=== PATIENT | male | born 1940 | race Caucasian/White ===

== ENCOUNTER 2019-01-13 19:44 | Inpatient (IN) | payer MEDICARE, BC ==
[~2019-01-13] VITALS: Ht 180.3 cm; Wt 75.8 kg
[2019-01-13 20:30] LABS: BASOPHILS % (AUTO) 0.5 % (0-1); EOSINOPHILS # (AUTO) 0.1 X10'3 (0-0.9); EOSINOPHILS % (AUTO) 0.6 % (0-6); HEMATOCRIT 48.9 % (42.0-52.0); HEMOGLOBIN 16.4 g/dl (14.0-17.9); LYMPHOCYTES # (AUTO) 0.9 X10'3 (1.1-4.8); LYMPHOCYTES % (AUTO) 9.7 % (21-51); MEAN CORPUSCULAR HEMOGLOBIN 30.9 PG (27.0-31.0); MEAN CORPUSCULAR HGB CONC 33.5 g/dL (33.0-36.5); MEAN CORPUSCULAR VOLUME 92.3 FL (78-98); MEAN PLATELET VOLUME 8.1 FL (7.4-10.4); MONOCYTES # (AUTO) 0.5 X10'3 (0-0.9); MONOCYTES % (AUTO) 5.5 % (2-12); NEUTROPHILS # (AUTO) 7.8 X10'3 (1.8-7.7); NEUTROPHILS % (AUTO) 83.7 % (42-75); PLATELET COUNT 289 X10'3 (140-440); RED CELL DISTRIBUTION WIDTH 14.4 % (11.5-14.5); WHITE BLOOD COUNT 9.3 X10'3 (4.5-11.0)
[2019-01-13 20:42] LABS: PARTIAL THROMBOPLASTIN TIME 26 SECONDS (22-32)
[2019-01-13 21:03] LABS: ALBUMIN 4.1 G/DL (3.4-5.0); ALBUMIN/GLOBULIN RATIO 1.1 (1.1-1.5); ANION GAP 10 (8-16); BILIRUBIN,TOTAL 0.6 MG/DL (0.1-1.0); BLOOD UREA NITROGEN 29 MG/DL (7-18); BUN/CREATININE RATIO 16.7 (5.4-32.0); CALCIUM 9.6 MG/DL (8.5-10.1); CHLORIDE 98 MMOL/L (99-107); CREATININE 1.74 MG/DL (0.60-1.10); GLUCOSE 261 MG/DL (70-104); POTASSIUM 4.5 MMOL/L (3.5-5.1); SODIUM 136 MMOL/L (135-145); TOTAL CARBON DIOXIDE 28.5 MMOL/L (24-32); eGFR 38 ML/MIN
[2019-01-13 21:04] LABS: ALANINE AMINOTRANSFERASE 24 U/L (12-78); ALKALINE PHOSPHATASE 74 IU/L (46-116); ASPARTATE AMINO TRANSFERASE 16 U/L (10-37)
[2019-01-13] MEDS ORDERED: GLIP5TAB13 PO (22:00)
[2019-01-13] MEDS ORDERED: METF500T PO (22:00)
[2019-01-13] MEDS ORDERED: CHOL10002 PO (22:00)
[2019-01-13] MEDS ORDERED: METO-395 PO (22:00)
[2019-01-13] MEDS ORDERED: FLUT16SP2 BOTHNARES (22:00)
[2019-01-13] MEDS ORDERED: ondansetron/PF 4mg/2ml inj IV PRN (23:50)
[2019-01-13] MEDS ORDERED: mag hydrox/Alum hydrox/simeth 30ml oral suspension PO PRN (23:50)
[2019-01-13] MEDS ORDERED: magnesium hydroxide 30ml (MOM) UD suspension PO PRN (23:50)
[2019-01-13] MEDS ORDERED: acetaminophen 325mg tablet PO PRN ×2 (23:50)
[2019-01-13] MEDS ORDERED: HYDROcodone/acetaminophen 5mg/325mg tablet PO PRN (23:50)
[2019-01-13] MEDS ORDERED: morphine 2 MG/ML inj. syringe IV PRN ×2 (23:50)
--- NOTE | 2019-01-14 00:53 | NUR ---
Patient in room . I have received report from [facility] and had the opportunity to ask questions and assume patient care.
--- NOTE | 2019-01-14 01:11 | NUR ---
patient arrived from ER, no distress VS stable, denies chest pain, Dr. Green at bedside at this time.
[2019-01-14 01:13] VITALS: BP 124/81
--- NOTE | 2019-01-14 01:39 | NUR ---
PER DR. MERA: OK TO DRAW 1 MORE TROPONIN DRAW FOR PATIENT
[2019-01-14 02:30] LABS: BASOPHILS # (AUTO) 0.1 X10'3 (0-0.2); BASOPHILS % (AUTO) 0.8 % (0-1); EOSINOPHILS # (AUTO) 0.1 X10'3 (0-0.9); EOSINOPHILS % (AUTO) 1.2 % (0-6); HEMATOCRIT 47.8 % (42.0-52.0); HEMOGLOBIN 16.1 g/dl (14.0-17.9); LYMPHOCYTES # (AUTO) 1.3 X10'3 (1.1-4.8); LYMPHOCYTES % (AUTO) 17.4 % (21-51); MEAN CORPUSCULAR HEMOGLOBIN 31.2 PG (27.0-31.0); MEAN CORPUSCULAR HGB CONC 33.8 g/dL (33.0-36.5); MEAN CORPUSCULAR VOLUME 92.4 FL (78-98); MEAN PLATELET VOLUME 7.8 FL (7.4-10.4); MONOCYTES # (AUTO) 0.5 X10'3 (0-0.9); MONOCYTES % (AUTO) 7.3 % (2-12); NEUTROPHILS # (AUTO) 5.4 X10'3 (1.8-7.7); NEUTROPHILS % (AUTO) 73.3 % (42-75); PLATELET COUNT 294 X10'3 (140-440); RED BLOOD COUNT 5.17 X10'6 (4.70-6.10); RED CELL DISTRIBUTION WIDTH 14.7 % (11.5-14.5); WHITE BLOOD COUNT 7.4 X10'3 (4.5-11.0)
[2019-01-14 02:47] LABS: HEMOGLOBIN A1C 7.6 % (4.5-6.2)
[2019-01-14 02:48] LABS: ANION GAP 5 (8-16); BLOOD UREA NITROGEN 29 MG/DL (7-18); BUN/CREATININE RATIO 20.6 (5.4-32.0); CALCIUM 9.7 MG/DL (8.5-10.1); CHLORIDE 102 MMOL/L (99-107); CREATININE 1.41 MG/DL (0.60-1.10); GLUCOSE 121 MG/DL (70-104); POTASSIUM 4.2 MMOL/L (3.5-5.1); SODIUM 140 MMOL/L (135-145); TOTAL CARBON DIOXIDE 32.6 MMOL/L (24-32); eGFR 49 ML/MIN
--- NOTE | 2019-01-14 06:12 | NUR ---
Problems reprioritized. Patient report given, questions answered & plan of care reviewed with KEVIN Worthington. Addendum: 01/14/19 at 0613 by Liset Adkins RN Amended: Links added.
[2019-01-14 07:22] VITALS: BP 102/55
[2019-01-14 07:23] VITALS: BP 99/61
[2019-01-14] MEDS ORDERED: glipizide 5mg tablet PO SCH (08:00)
[2019-01-14] MEDS ORDERED: metFORMIN 500mg tablet PO SCH (08:00)
[2019-01-14] MEDS: metoprolol succinate 25mg (24-HOUR) SR. Tablet PO SCH ×2 (08:00→19:52)
[2019-01-14] MEDS: furosemide 20 MG/2 ML vial IV SCH ×2 (08:00→19:48)
[2019-01-14] MEDS: vitamin D (cholecalciferol) 1,000 unit tablet PO SCH (08:24)
[2019-01-14] MEDS: fluticasone nasal spray 16GM bottle NS SCH (08:26)
[2019-01-14] MEDS ORDERED: OFLO5DRO3 LEFTEYE (09:36)
[2019-01-14] MEDS ORDERED: PRED15SO23 LEFTEYE (09:36)
[2019-01-14] MEDS ORDERED: PRED15SO6 LEFTEYE (09:45)
[2019-01-14] MEDS: PREDNISOLONE SODIUM PHOSPHATE 1% LEFTEYE SCH ×7 (10:55→23:00)
[2019-01-14] MEDS: OFLOXACIN LEFTEYE SCH ×7 (10:55→23:00)
[2019-01-14 11:33] VITALS: BP 113/63
--- NOTE | 2019-01-14 14:42 | NUR ---
DM consult, A1c 7.6, patient given written DM education handout with verbal review and referral to outpatient wednesday DM class. Addendum: 01/14/19 at [address] Amended: Links added.
[2019-01-14] MEDS: metFORMIN 500mg tablet PO SCH (15:51)
[2019-01-14] MEDS: glipizide 5mg tablet PO SCH (15:51)
--- NOTE | 2019-01-14 16:35 | NUR ---
Paged about possible stress test. No answer.
--- NOTE | 2019-01-14 18:20 | NUR ---
Problems reprioritized. Patient report given, questions answered & plan of care reviewed with KEVIN Warren.
--- NOTE | 2019-01-14 18:30 | NUR ---
Patient in room [facility]. I have received report from TRISH BROWN and had the opportunity to ask questions and assume patient care.
[2019-01-14 20:00] VITALS: BP 128/71
--- NOTE | 2019-01-14 22:00 | NUR ---
PATIENT CLAIMED THAT HIS EYE DROPS THAT IS TO BE TAKEN Q2H IS ONLY WHEN HE IS AWAKE, AND HE USUALLY TAKES IT STARTING 0600 UP TO 2200.
[2019-01-15] VITALS (7 sets, daily range): BP systolic 103–144; BP diastolic 54–80
[2019-01-15] MEDS: OFLOXACIN LEFTEYE SCH ×12 (01:00→23:00)
[2019-01-15] MEDS: PREDNISOLONE SODIUM PHOSPHATE 1% LEFTEYE SCH ×12 (01:00→23:00)
[2019-01-15 05:58] LABS: BASOPHILS % (AUTO) 0.6 % (0-1); EOSINOPHILS # (AUTO) 0.2 X10'3 (0-0.9); EOSINOPHILS % (AUTO) 2.5 % (0-6); HEMATOCRIT 45.6 % (42.0-52.0); HEMOGLOBIN 15.3 g/dl (14.0-17.9); LYMPHOCYTES # (AUTO) 1.6 X10'3 (1.1-4.8); LYMPHOCYTES % (AUTO) 22.1 % (21-51); MEAN CORPUSCULAR HEMOGLOBIN 30.9 PG (27.0-31.0); MEAN CORPUSCULAR HGB CONC 33.5 g/dL (33.0-36.5); MEAN CORPUSCULAR VOLUME 92.3 FL (78-98); MEAN PLATELET VOLUME 7.9 FL (7.4-10.4); MONOCYTES # (AUTO) 0.7 X10'3 (0-0.9); MONOCYTES % (AUTO) 9.6 % (2-12); NEUTROPHILS # (AUTO) 4.9 X10'3 (1.8-7.7); NEUTROPHILS % (AUTO) 65.2 % (42-75); PLATELET COUNT 278 X10'3 (140-440); RED BLOOD COUNT 4.94 X10'6 (4.70-6.10); RED CELL DISTRIBUTION WIDTH 14.3 % (11.5-14.5); WHITE BLOOD COUNT 7.4 X10'3 (4.5-11.0)
--- NOTE | 2019-01-15 06:13 | NUR ---
Problems reprioritized. Patient report given, questions answered & plan of care reviewed with TRISH BROWN.
[2019-01-15 06:21] LABS: ALBUMIN 3.4 G/DL (3.4-5.0); ANION GAP 9 (8-16); BLOOD UREA NITROGEN 28 MG/DL (7-18); BUN/CREATININE RATIO 20.1 (5.4-32.0); CALCIUM 9.2 MG/DL (8.5-10.1); CHLORIDE 103 MMOL/L (99-107); CREATININE 1.39 MG/DL (0.60-1.10); GLUCOSE 73 MG/DL (70-104); POTASSIUM 4.4 MMOL/L (3.5-5.1); SODIUM 144 MMOL/L (135-145); TOTAL CARBON DIOXIDE 32.2 MMOL/L (24-32); eGFR 50 ML/MIN
[2019-01-15] MEDS: glipizide 5mg tablet PO SCH ×2 (07:23→15:23)
[2019-01-15] MEDS: vitamin D (cholecalciferol) 1,000 unit tablet PO SCH (07:23)
[2019-01-15] MEDS: metFORMIN 500mg tablet PO SCH ×2 (07:23→15:23)
[2019-01-15] MEDS: metoprolol succinate 25mg (24-HOUR) SR. Tablet PO SCH ×2 (07:23→19:37)
[2019-01-15] MEDS: furosemide 20 MG/2 ML vial IV SCH ×2 (07:24→19:37)
[2019-01-15] MEDS: fluticasone nasal spray 16GM bottle NS SCH (07:24)
--- NOTE | 2019-01-15 11:21 | NUR ---
pt c/o intermittent SOB. cora ROBLEDO. Vitals stable. Awaiting response/ new orders.
--- NOTE | 2019-01-15 12:38 | NUR ---
MD ordered blood glucose assessments PRN change in mental status.
--- NOTE | 2019-01-15 18:02 | NUR ---
Patient in room [facility]. I have received report from Mari BROWN and had the opportunity to ask questions and assume patient care.
--- NOTE | 2019-01-15 18:22 | NUR ---
Problems reprioritized. Patient report given, questions answered & plan of care reviewed with KEVIN Navarro.
[2019-01-15] MEDS: lisinopril 2.5mg tablet PO SCH (23:25)
[2019-01-16] MEDS: OFLOXACIN LEFTEYE SCH ×12 (01:00→23:00)
[2019-01-16] MEDS: PREDNISOLONE SODIUM PHOSPHATE 1% LEFTEYE SCH ×12 (01:00→23:00)
--- NOTE | 2019-01-16 01:26 | NUR ---
Zestril not given as pt.'s VS WNR and he did not want to be awoken if sleeping.
[2019-01-16 05:15] LABS: BASOPHILS # (AUTO) 0.1 X10'3 (0-0.2); BASOPHILS % (AUTO) 1.2 % (0-1); EOSINOPHILS # (AUTO) 0.2 X10'3 (0-0.9); EOSINOPHILS % (AUTO) 3.2 % (0-6); HEMATOCRIT 45.8 % (42.0-52.0); HEMOGLOBIN 15.1 g/dl (14.0-17.9); LYMPHOCYTES # (AUTO) 1.5 X10'3 (1.1-4.8); LYMPHOCYTES % (AUTO) 21.7 % (21-51); MEAN CORPUSCULAR HEMOGLOBIN 30.5 PG (27.0-31.0); MEAN CORPUSCULAR VOLUME 92.4 FL (78-98); MEAN PLATELET VOLUME 7.9 FL (7.4-10.4); MONOCYTES # (AUTO) 0.7 X10'3 (0-0.9); NEUTROPHILS # (AUTO) 4.5 X10'3 (1.8-7.7); NEUTROPHILS % (AUTO) 63.9 % (42-75); PLATELET COUNT 266 X10'3 (140-440); RED BLOOD COUNT 4.96 X10'6 (4.70-6.10); RED CELL DISTRIBUTION WIDTH 14.2 % (11.5-14.5)
[2019-01-16 05:25] LABS: ALBUMIN 3.4 G/DL (3.4-5.0); ANION GAP 8 (8-16); BLOOD UREA NITROGEN 29 MG/DL (7-18); CHLORIDE 102 MMOL/L (99-107); CREATININE 1.26 MG/DL (0.60-1.10); GLUCOSE 90 MG/DL (70-104); SODIUM 140 MMOL/L (135-145); TOTAL CARBON DIOXIDE 29.9 MMOL/L (24-32); eGFR 55 ML/MIN
--- NOTE | 2019-01-16 06:36 | NUR ---
Problems reprioritized. Patient report given, questions answered & plan of care reviewed with Mari BROWN.
[2019-01-16 07:10] VITALS: BP_SYST 112; BP_SYST 115; BP_SYST 119; BP_DIAS 75; BP_DIAS 78; BP_DIAS 93
[2019-01-16] MEDS: glipizide 5mg tablet PO SCH ×2 (07:39→14:30)
[2019-01-16] MEDS: vitamin D (cholecalciferol) 1,000 unit tablet PO SCH (07:39)
[2019-01-16] MEDS: metFORMIN 500mg tablet PO SCH ×2 (07:39→14:30)
[2019-01-16] MEDS: carvedilol 6.25mg tablet PO SCH ×2 (07:40→19:54)
[2019-01-16] MEDS: lisinopril 2.5mg tablet PO SCH (07:40)
[2019-01-16] MEDS: fluticasone nasal spray 16GM bottle NS SCH (07:40)
[2019-01-16] MEDS: furosemide 20 MG/2 ML vial IV SCH (07:44)
[2019-01-16 11:00] VITALS: BP 113/62
--- NOTE | 2019-01-16 18:28 | NUR ---
Problems reprioritized. Patient report given, questions answered & plan of care reviewed with NIKA Henning RN.
--- NOTE | 2019-01-16 18:36 | NUR ---
Patient in room [facility]. I have received report from KEVIN CHAMBERS and had the opportunity to ask questions and assume patient care. Addendum: 01/16/19 at 1836 by Liset Adkins RN Amended: Links added.
[2019-01-16] MEDS: furosemide 20MG tablet PO SCH (19:54)
[2019-01-16 20:00] VITALS: BP_SYST 100; BP_SYST 103; BP_SYST 107; BP_SYST 93; BP_DIAS 55; BP_DIAS 58; BP_DIAS 67
[2019-01-17] VITALS: BP 101/55
[2019-01-17] MEDS: OFLOXACIN LEFTEYE SCH ×7 (01:00→13:44)
[2019-01-17] MEDS: PREDNISOLONE SODIUM PHOSPHATE 1% LEFTEYE SCH ×7 (01:00→13:44)
[2019-01-17 04:51] LABS: MEAN CORPUSCULAR HEMOGLOBIN 30.8 PG (27.0-31.0); MEAN CORPUSCULAR VOLUME 91.7 FL (78-98); PLATELET COUNT 274 X10'3 (140-440); WHITE BLOOD COUNT 7.3 X10'3 (4.5-11.0)
[2019-01-17 04:54] LABS: BASOPHILS # (AUTO) 0.1 X10'3 (0-0.2); EOSINOPHILS # (AUTO) 0.3 X10'3 (0-0.9); EOSINOPHILS % (AUTO) 3.5 % (0-6); HEMATOCRIT 45.3 % (42.0-52.0); HEMOGLOBIN 15.2 g/dl (14.0-17.9); LYMPHOCYTES # (AUTO) 1.8 X10'3 (1.1-4.8); LYMPHOCYTES % (AUTO) 24.2 % (21-51); MEAN CORPUSCULAR HGB CONC 33.6 g/dL (33.0-36.5); MONOCYTES # (AUTO) 0.8 X10'3 (0-0.9); MONOCYTES % (AUTO) 10.8 % (2-12); NEUTROPHILS # (AUTO) 4.4 X10'3 (1.8-7.7); NEUTROPHILS % (AUTO) 60.5 % (42-75); RED BLOOD COUNT 4.94 X10'6 (4.70-6.10); RED CELL DISTRIBUTION WIDTH 14.5 % (11.5-14.5)
[2019-01-17 05:05] LABS: ALBUMIN 3.2 G/DL (3.4-5.0); ANION GAP 6 (8-16); BLOOD UREA NITROGEN 29 MG/DL (7-18); BUN/CREATININE RATIO 19.7 (5.4-32.0); CALCIUM 9.5 MG/DL (8.5-10.1); CHLORIDE 102 MMOL/L (99-107); CREATININE 1.47 MG/DL (0.60-1.10); GLUCOSE 79 MG/DL (70-104); POTASSIUM 4.1 MMOL/L (3.5-5.1); SODIUM 140 MMOL/L (135-145); TOTAL CARBON DIOXIDE 32.2 MMOL/L (24-32); eGFR 46 ML/MIN
--- NOTE | 2019-01-17 06:36 | NUR ---
Patient in room [facility]. I have received report from Radha Reeves RN and had the opportunity to ask questions and assume patient care.
--- NOTE | 2019-01-17 06:36 | NUR ---
Problems reprioritized. Patient report given, questions answered & plan of care reviewed with KEVIN Anderson. Addendum: 01/17/19 at 0636 by Liset Adkins RN Amended: Links added.
[2019-01-17 08:00] VITALS: BP_SYST 103; BP_SYST 126; BP_SYST 88; BP_SYST 94; BP_DIAS 48; BP_DIAS 61; BP_DIAS 62; BP_DIAS 71
[2019-01-17] MEDS: metFORMIN 500mg tablet PO SCH (08:19)
[2019-01-17] MEDS: lisinopril 2.5mg tablet PO SCH (08:19)
[2019-01-17] MEDS: glipizide 5mg tablet PO SCH (08:20)
[2019-01-17] MEDS: fluticasone nasal spray 16GM bottle NS SCH (08:20)
[2019-01-17] MEDS: furosemide 20MG tablet PO SCH (08:20)
[2019-01-17] MEDS: vitamin D (cholecalciferol) 1,000 unit tablet PO SCH (08:20)
[2019-01-17] MEDS: carvedilol 6.25mg tablet PO SCH (08:20)
[2019-01-17 12:00] VITALS: BP 103/48
[2019-01-17] MEDS ORDERED: LISI2.5T2 PO (12:14)
[2019-01-17] MEDS ORDERED: FURO20TA4 PO (12:14)
[2019-01-17] MEDS ORDERED: CARV6.253 PO (12:14)
== END 2019-01-17 14:00 | disposition home or self-care (01) | DRG 291 ==
LOC: ER 20:30 → SUR 3N 01-14 01:10
PROVIDERS: ADMIT Internal Medicine; ATTEND Family Medicine
DX: I13.0 Hypertensive heart and chronic kidney disease with heart failure and stage 1 through stage 4 chronic kidney disease, or unspecified chronic kidney disease (principal); N17.0 Acute kidney failure with tubular necrosis; I50.23 Acute on chronic systolic (congestive) heart failure; I20.8 Other forms of angina pectoris; N18.9 Chronic kidney disease, unspecified; E86.0 Dehydration; H54.8 Legal blindness, as defined in USA; E11.22 Type 2 diabetes mellitus with diabetic chronic kidney disease; R55 Syncope and collapse; I48.91 Unspecified atrial fibrillation; J44.9 Chronic obstructive pulmonary disease, unspecified; Z79.899 Other long term (current) drug therapy; Z90.2 Acquired absence of lung [part of]; Z79.84 Long term (current) use of oral hypoglycemic drugs; Z98.49 Cataract extraction status, unspecified eye
CPT/HCPCS: 36415; 71046; 80048; 80053; 82948; 83036; 83880; 84484; 85025; 85610; 85730; 87081; 93005; 93306; 93880; 99285; G0378; J1940

== ENCOUNTER 2019-04-01 13:43 | Emergency (ER) | payer MEDICARE, BC ==
[~2019-04-01] VITALS: Ht 180.3 cm; Wt 80.9 kg
[~2019-04-01 13:43] MED LIST: CARV6.253 PO; CHOL10002 PO; FLUT16SP2 BOTHNARES; FURO20TA4 PO; LISI2.5T2 PO; METF500T PO; OFLO5DRO3 LEFTEYE; PRED15SO6 LEFTEYE
[2019-04-01 13:54] VITALS: BP 114/66
--- NOTE | 2019-04-01 14:05 | NUR ---
ABOUT 6 WEEKS AGO PT GOT A LIFE VEST EXTERNAL DEFIBRILATOR. Apr SCHEDULED FOR A PERMANENT DEFIB WITH DR. SOLER.
[2019-04-01 14:39] LABS: BASOPHILS % (AUTO) 0.7 % (0-1); EOSINOPHILS # (AUTO) 0.2 X10'3 (0-0.9); EOSINOPHILS % (AUTO) 2.5 % (0-6); HEMATOCRIT 44.8 % (42.0-52.0); LYMPHOCYTES # (AUTO) 1.1 X10'3 (1.1-4.8); LYMPHOCYTES % (AUTO) 16.7 % (21-51); MEAN CORPUSCULAR HEMOGLOBIN 31.5 PG (27.0-31.0); MEAN CORPUSCULAR HGB CONC 33.5 g/dL (33.0-36.5); MEAN CORPUSCULAR VOLUME 94.1 FL (78-98); MEAN PLATELET VOLUME 7.2 FL (7.4-10.4); MONOCYTES # (AUTO) 0.6 X10'3 (0-0.9); MONOCYTES % (AUTO) 9.4 % (2-12); NEUTROPHILS # (AUTO) 4.8 X10'3 (1.8-7.7); NEUTROPHILS % (AUTO) 70.7 % (42-75); PLATELET COUNT 272 X10'3 (140-440); RED BLOOD COUNT 4.76 X10'6 (4.70-6.10); RED CELL DISTRIBUTION WIDTH 15.2 % (11.5-14.5); WHITE BLOOD COUNT 6.8 X10'3 (4.5-11.0)
[2019-04-01 14:46] LABS: PARTIAL THROMBOPLASTIN TIME 30 SECONDS (22-32)
[2019-04-01 14:49] LABS: ALBUMIN 3.4 G/DL (3.4-5.0); ALBUMIN/GLOBULIN RATIO 0.9 (1.1-1.5); ANION GAP 9 (8-16); ASPARTATE AMINO TRANSFERASE 11 U/L (10-37); BILIRUBIN,TOTAL 0.7 MG/DL (0.1-1.0); BLOOD UREA NITROGEN 14 MG/DL (7-18); BUN/CREATININE RATIO 10.9 (5.4-32.0); CHLORIDE 100 MMOL/L (99-107); CREATININE 1.28 MG/DL (0.60-1.10); GLUCOSE 291 MG/DL (70-104); MAGNESIUM 1.9 MG/DL (1.5-2.4); POTASSIUM 4.2 MMOL/L (3.5-5.1); SODIUM 139 MMOL/L (135-145); TOTAL CARBON DIOXIDE 29.7 MMOL/L (24-32); TOTAL PROTEIN 7.3 G/DL (6.4-8.2); eGFR 54 ML/MIN
[2019-04-01 14:50] LABS: ALANINE AMINOTRANSFERASE 18 U/L (12-78); ALKALINE PHOSPHATASE 72 IU/L (46-116)
[2019-04-01] MEDS ORDERED: potassium Cl 20 mEq SR tablet PO STA (16:04)
[2019-04-01] MEDS ORDERED: furosemide 10 MG/1 ML 10ml inj IV ONE (16:05)
[2019-04-01] MEDS ORDERED: FURO-150 PO (16:13)
[2019-04-01] MEDS ORDERED: POTA10CA44 PO (16:13)
== END 2019-04-01 16:37 | disposition home or self-care (01) ==
LOC: ER 13:44
DX: I11.0 Hypertensive heart disease with heart failure (principal); I50.9 Heart failure, unspecified; I48.91 Unspecified atrial fibrillation; E11.9 Type 2 diabetes mellitus without complications; Z79.84 Long term (current) use of oral hypoglycemic drugs; Z79.899 Other long term (current) drug therapy
CPT/HCPCS: 36415; 71045; 80053; 83735; 83880; 84484; 85025; 85610; 85730; 93005; 96374; 99284; J1940